=== PATIENT | female | born 1965 | race Caucasian/White ===

== ENCOUNTER 2024-11-05 09:42 | Outpatient (CLI) | payer OTHER, SELFPAY ==
--- NOTE | ~2024-11-05 | MR_ITS ---
MRI of the lumbar spine Clinical History: Back pain Technique: Axial T2-weighted images, and sagittal T1-weighted, T2-weighted, and T2 fat-sat images wer e acquired. Findings: There is no fracture the lumbar spine. There is minimal grade 1 retrolisthesis of L2 over L 3. No bone marrow signal abnormality seen. At L1-L2, there is minimal disc bulge with moderate facet hypertrophy. No central canal stenosis. Pro bable minimal left neural foraminal narrowing. Right neural foramen preserved. At L2-L3, there is mild degenerative disc narrowing. There is diffuse disc bulge with moderate facet arthropathy. There is minimal central canal stenosis. There is probable and moderate left neural fora michele narrowing and mild right neural foraminal narrowing. At L3-L4, there is minimal disc bulge with moderate facet arthropathy. No central canal stenosis or d efinite neural foraminal narrowing. At L4-L5, there is central disc extrusion, without ophelia canal stenosis. There is mild bilateral neur al foraminal narrowing. At L5-S1, there is no disc bulge or herniation. There is moderate facet arthropathy. Neural foramina are preserved. Paravertebral soft tissues are unremarkable. Impression: Central disc extrusion at L4-L5 without ophelia canal stenosis. Additional mild to moderate degenerative spondylitic changes, as above. Reviewed, dictated and finalized at [facility]. [employer] Impression: Central disc extrusion at L4-L5 without ophelia canal stenosis. Additional mild to moderate degenerative spondylitic changes, as above.
== END 2024-11-05 09:43 | disposition home or self-care (01) ==
PROVIDERS: PCP Family Medicine Sports Medicine; Visit Provider Family Medicine Sports Medicine
DX: M47.26 Other spondylosis with radiculopathy, lumbar region (principal); M51.26 Other intervertebral disc displacement, lumbar region; M51.369 Other intervertebral disc degeneration, lumbar region without mention of lumbar back pain or lower extremity pain
CPT/HCPCS: 72148